=== PATIENT | male | born 1985 | race African-American/Black ===

== ENCOUNTER 2021-01-09 19:16 | Emergency (ER) | payer MEDICAID, OTHER ==
[~2021-01-09] VITALS: Ht 182.9 cm; Wt 86.0 kg
[2021-01-09] MEDS ORDERED: MAGNESIUM/ALUMINUM HYDROXIDE/SIMETHICONE 30ML UDC PO STA (20:18)
[2021-01-09 21:13] LABS: CLARITY URINE CLEAR (CLEAR); COLOR URINE YELLOW (YELLOW); KETONES URINE NEGATIVE (NEGATIVE); LEUKOCYTE ESTERASE URINE NEGATIVE (NEGATIVE); NITRITE URINE NEGATIVE (NEGATIVE); OCCULT BLOOD URINE NEGATIVE (NEGATIVE); PH URINE 5.5 (4.5-8.0); PROTEIN URINE NEGATIVE (NEGATIVE); SPECIFIC GRAVITY URINE 1.016 (1.005-1.030)
[2021-01-09 21:20] LABS: BASOPHILS % 0.5 % (0.0-2.0); HEMATOCRIT. 42.6 % (42.0-52.0); HEMOGLOBIN. 14.1 g/dL (14.0-18.0); LYMPHOCYTES % 24.1 % (20.0-50.0); MEAN CORPUSCULAR HEMOGLOBIN 26.2 pg (28.0-32.0); MEAN CORPUSCULAR VOLUME 79.3 fL (80.0-94.0); MEAN PLATELET VOLUME 9.1 fl (7.4-10.4); MONOCYTES % 8.1 % (2.0-8.0); NEUTROPHILS % 65.3 % (40.0-76.0); PLATELET 188 x1000/uL (130-400); RED BLOOD CELL COUNT 5.38 mill/uL (4.7-6.1); RED CELL DISTRIBUTION WIDTH 14.3 % (11.6-14.6)
[2021-01-09 21:28] LABS: CHLORIDE 106 mEq/L (98-107)
[2021-01-09] MEDS ORDERED: IMOD MT (21:55)
[2021-01-09 22:15] VITALS: BP 116/68
== END 2021-01-09 22:15 | disposition home or self-care (01) ==
LOC: ER 19:16
DX: R19.7 Diarrhea, unspecified (principal); Z86.73 Personal history of transient ischemic attack (TIA), and cerebral infarction without residual deficits; Z98.890 Other specified postprocedural states
CPT/HCPCS: 36415; 74018; 80053; 81003; 85025; 93005; 99284

== ENCOUNTER 2021-11-06 07:27 | Emergency (ER) | payer MEDICAID, OTHER ==
[~2021-11-06] VITALS: Ht 180.3 cm; Wt 73.0 kg
[~2021-11-06 07:27] MED LIST: IMOD MT
[2021-11-06] MEDS ORDERED: ACETAMINOPHEN 325MG TABLET PO ONE (07:45)
[2021-11-06] MEDS ORDERED: TOPUD PO (09:15)
[2021-11-06 09:31] VITALS: BP 135/66
== END 2021-11-06 09:33 | disposition home or self-care (01) ==
LOC: ER 07:27
DX: R05.9 Cough, unspecified (principal); R07.0 Pain in throat; Z20.822 Contact with and (suspected) exposure to COVID-19; Z86.73 Personal history of transient ischemic attack (TIA), and cerebral infarction without residual deficits; Z98.890 Other specified postprocedural states
CPT/HCPCS: 87070; 87430; 99283; C9803; U0003; U0005

== ENCOUNTER 2022-10-07 06:35 | Emergency (ER) | payer MEDICAID, OTHER ==
[~2022-10-07] VITALS: Ht 182.9 cm; Wt 78.0 kg
[~2022-10-07 06:35] MED LIST changes: +TOPUD PO
[2022-10-07 07:06] VITALS: BP 120/77
[2022-10-07] MEDS ORDERED: DOXYCYCLINE HYCLATE 100MG CAPSULE PO ONE (09:00)
[2022-10-07] MEDS ORDERED: CEFTRIAXONE SODIUM 500 MG/VIAL IM ONE (09:00)
[2022-10-07] MEDS ORDERED: DOXY150T5 MT (09:09)
[2022-10-07 11:06] LABS: CLARITY URINE CLEAR (CLEAR); COLOR URINE YELLOW (YELLOW); KETONES URINE NEGATIVE (NEGATIVE); LEUKOCYTE ESTERASE URINE 2+ (NEGATIVE); NITRITE URINE NEGATIVE (NEGATIVE); OCCULT BLOOD URINE NEGATIVE (NEGATIVE); PH URINE 5.5 (4.5-8.0); PROTEIN URINE NEGATIVE (NEGATIVE); SPECIFIC GRAVITY URINE 1.016 (1.005-1.030)
== END 2022-10-07 12:12 | disposition home or self-care (01) ==
LOC: ER 06:45
DX: A64 Unspecified sexually transmitted disease (principal)
CPT/HCPCS: 81003; 87086; 87491; 87591; 96372; 99283; J0696

== ENCOUNTER 2023-04-29 10:37 | Emergency (ER) | payer OTHER ==
[~2023-04-29] VITALS: Ht 182.9 cm; Wt 77.0 kg
[~2023-04-29 10:37] MED LIST changes: +DOXY150T5 MT
[2023-04-29 11:51] LABS: BASOPHILS % 0.7 % (0.0-2.0); EOSINOPHILS % 3.2 % (0.0-5.0); HEMATOCRIT. 43.4 % (42.0-52.0); HEMOGLOBIN. 14.7 g/dL (14.0-18.0); MEAN CORPUSCULAR HEMOGLOBIN 26.8 pg (28.0-32.0); MEAN CORPUSCULAR VOLUME 78.9 fL (80.0-94.0); MEAN PLATELET VOLUME 8.5 fl (7.4-10.4); MONOCYTES % 8.3 % (2.0-8.0); NEUTROPHILS % 56.8 % (40.0-76.0); PLATELET 210 x1000/uL (130-400); RED CELL DISTRIBUTION WIDTH 13.9 % (11.6-14.6)
[2023-04-29 12:00] LABS: CHLORIDE 107 mEq/L (98-107)
[2023-04-29] MEDS ORDERED: MAGNESIUM/ALUMINUM HYDROXIDE/SIMETHICONE 30ML UDC PO ONE (13:30)
[2023-04-29] MEDS ORDERED: MAG-55 MT (15:50)
[2023-04-29] MEDS ORDERED: FAMO-135 MT (15:50)
[2023-04-29] MEDS ORDERED: TOPUD MT (15:50)
[2023-04-29 16:11] VITALS: BP 116/72
== END 2023-04-29 16:14 | disposition home or self-care (01) ==
LOC: ER 10:37
DX: R07.89 Other chest pain (principal)
CPT/HCPCS: 36415; 71045; 80053; 83880; 84484; 85025; 93005; 99285